=== PATIENT | male | born 2000 | race Caucasian/White ===

== ENCOUNTER 2019-08-20 12:48 | Emergency (ER) | payer OTHER ==
[~2019-08-20] VITALS: Ht 170.2 cm; Wt 77.3 kg
[2019-08-20 12:53] VITALS: BP 128/78
== END 2019-08-20 13:26 | disposition home or self-care (01) ==
LOC: EMS 12:55
DX: J02.9 Acute pharyngitis, unspecified (principal); R03.0 Elevated blood-pressure reading, without diagnosis of hypertension; Z20.828 Contact with and (suspected) exposure to other viral communicable diseases
CPT/HCPCS: 87635